=== PATIENT | female | born 1960 | race Caucasian/White ===

== ENCOUNTER → 2018-06-01 | Day surgery (SDC) | payer OTHER ==
[~2018-06-01] MED LIST: ATENOLOL50 MG PO; BUPIVACAINE HCL 0.5% INJ 30 ML VIAL INJ ONE; CEFAZOLIN SOD 1 GM VIAL ONE; DEXAMETHASONE SOD PHOS INJ 4 MG/ML VIAL ONE; EPHEDRINE SULFATE INJ 50 MG/10 ML SYR ONE; FENTANYL CITRATE/PF 100MCG/2 ML INJ ONE; GABAPENTIN PO; IRON PO; LIDOCAINE HCL 2% LOCAL INJ 5 ML SDV VIAL INJ ONE; LIDODERM700 MG TOP; MIDAZOLAM HCL 2 MG/2 ML VIAL ONE; MUPIROCIN 2% OINT 22 GM TUBE ONE; ONDANSETRON HCL INJ 2 MG/ML VIAL ONE; PROPOFOL IV EMULSION 10 MG/ML 20 ML VIAL ONE; SEVOFLURANE INHAL SOLN 250 ML PEN BTL ONE; TYLENOL WITH C1 EACH PO; ULTRAM 50MG50 MG PO; VIMOVO PO; ZOLOFT50 MG PO
--- OUTSIDE RECORDS SUMMARY | 2018-06-01 05:35 | XMS REPORT ---
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 Allergies, Adverse Reactions, Alerts Allergy Name Allergy Type Status Severity Reaction(s) Onset Date Inactive Date Treating Clinician Comments No Known Allergies DA Active U 2017-12-22 00:00:00 Medications This patient has no known medications.
[2018-06-01 08:30] VITALS: BP 132/81
--- NOTE | 2018-06-01 11:19 | Operative Report ---
DATE OF PROCEDURE: June 01, 2018 PREOPERATIVE DIAGNOSIS: Right carpal tunnel syndrome. POSTOPERATIVE DIAGNOSES 1. Right carpal tunnel syndrome. 2. Flexor tenosynovitis right wrist. PROCEDURES 1. Right open carpal tunnel release. 2. Flexor tenosynovectomy right wrist. ANESTHESIA: General. HISTORY: The patient is a 57-year-old with EMG-proven right carpal tunnel syndrome. Risks, benefits and alternatives of treatment were discussed with the patient. The patient is prepared to undergo the procedure as outlined. PROCEDURE: The patient was brought to the operating theater. After the induction of adequate general inhalation anesthesia, the patient was prepped and draped in the supine position. A time out was performed by the entire operating room team. A 2.5-cm incision was marked out in the intrathenar space. The right upper extremity was exsanguinated and a tourniquet was inflated to a pressure of 250 mmHg. The incision was made through the skin and subcutaneous tissues and all venous tributaries were controlled with bipolar cautery. The incision was deepened through the palmar fascia until the transverse carpal ligament was identified. The ligament was sharply sectioned, taking care to protect and preserve the median nerve underlying it. After the complete width of the ligament had been transected, the distal volar forearm fascia was divided under direct view. Proliferative flexor tenosynovium was noticed to encompass the median nerve and this was radically excised. After performing this maneuver, the nerve was noted to lie adequately decompressed. The wound was copiously irrigated with bacteriostatic saline, closed with 5-0 nylon in an interrupted horizontal mattress fashion. A Marcaine field block was performed at the operative site. Tourniquet was deflated. All of the fingers pinked up nicely and a sterile bulking conforming bandage was applied to the hand and the wrist. A fiberglass splint was fashioned to maintain the wrist in a modest amount of extension. This was held in place with a loosely wrapped Jermaine wrap. The patient tolerated the procedure well and was brought to the recovery room in satisfactory condition and discharged with a postoperative instruction sheet as well as a followup appointment. Job#: [id number] SOLIS
== END | disposition home or self-care (01) ==
LOC: OR 05:25
PROVIDERS: ATTEND Plastic Surgery
DX: G56.01 Carpal tunnel syndrome, right upper limb (principal); M65.841 Other synovitis and tenosynovitis, right hand; I10 Essential (primary) hypertension; M54.9 Dorsalgia, unspecified; Z01.810 Encounter for preprocedural cardiovascular examination
CPT/HCPCS: 25115; 93005; J0690; J1100; J2001; J2250; J2405

== ENCOUNTER → 2020-05-07 | Outpatient (CLI) | payer OTHER ==
[~2020-05-07] MED LIST changes: -BUPIVACAINE HCL 0.5% INJ 30 ML VIAL INJ ONE; -CEFAZOLIN SOD 1 GM VIAL ONE; -DEXAMETHASONE SOD PHOS INJ 4 MG/ML VIAL ONE; -EPHEDRINE SULFATE INJ 50 MG/10 ML SYR ONE; -FENTANYL CITRATE/PF 100MCG/2 ML INJ ONE; -LIDOCAINE HCL 2% LOCAL INJ 5 ML SDV VIAL INJ ONE; -MIDAZOLAM HCL 2 MG/2 ML VIAL ONE; -MUPIROCIN 2% OINT 22 GM TUBE ONE; -ONDANSETRON HCL INJ 2 MG/ML VIAL ONE; -PROPOFOL IV EMULSION 10 MG/ML 20 ML VIAL ONE; -SEVOFLURANE INHAL SOLN 250 ML PEN BTL ONE
--- NOTE | 2020-05-07 09:06 | Diagnostic Imaging Report ---
EXAM: US ABDOMEN COMPLETE DATE: 05/07/2020 8:06 AM INDICATION: Left upper quadrant abdominal pain COMPARISON: None TECHNIQUE: Transverse and longitudinal shepherd scale and color doppler sonographic images of the upper abdomen were obtained. FINDINGS: LIVER 15.0 cm in the right midclavicular line. Mildly increased echogenicity of the liver with normal contour, no masses. SPLEEN 9.0 cm in maximum diameter. Normal echogenicity, no masses. GALLBLADDER No gallbladder wall thickening, distension, stone, or pericholecystic fluid. Negative reported sonographic Figueroa's sign. The gallbladder wall measures 2mm BILE DUCTS No intra nor extra-hepatic biliary dilation. Common bile duct measures 2mm PANCREAS: Visualized portions are normal. RIGHT KIDNEY: 9.9 cm Echogenicity: Normal Collecting System: No hydronephrosis Stones: None Cyst/Mass: None LEFT KIDNEY: 10.5 cm Echogenicity: Normal Collecting System: No hydronephrosis Stones: None Cyst/Mass: None VESSELS: Aorta: Visualized portions are within normal size limits Inferior Vena Cava: Visualized portions are normal Main Portal Vein: 0.8 cm, normal size with hepatopetal flow. FREE FLUID: None IMPRESSION: Mild diffuse hepatic steatosis. Otherwise, unremarkable abdominal ultrasound. Signed by: Britta Duncan MD on 05/07/2020 9:03 AM
== END ==
LOC: US 07:30
PROVIDERS: ATTEND Family Medicine
DX: R10.12 Left upper quadrant pain (principal)
CPT/HCPCS: 76700

== ENCOUNTER 2022-11-10 18:19 | Inpatient (IN) | payer OTHER ==
[~2022-11-10] VITALS: Ht 160 cm; Wt 89.8 kg
[2022-11-10] MEDS ORDERED: HYDROCODONE/APAP 10MG-325MG TAB PO ONE (18:45)
[2022-11-10] MEDS ORDERED: ONDANSETRON HCL INJ 2MG/ML 2ML 2 MG/ML VIAL IV STA (20:04)
[2022-11-10] MEDS ORDERED: Morphine 4mg INJECTION 4 MG/ML INJ IV STA (20:04)
[2022-11-10] MEDS ORDERED: SODIUM CHLORIDE 0.9% 1000ML 1,000 ML IV STA (20:04)
[2022-11-10 20:27] LABS: BASOPHILS # (AUTO) 0.1 (0.0-0.1); BASOPHILS % 0.6 % (0.0-1.0); EOSINOPHILS # (AUTO) 0.1 (0.0-0.4); HEMOGLOBIN 12.1 g/dL (12.0-16.0); LYMPHOCYTES # (AUTO) 1.6 (1.0-3.2); LYMPHOCYTES % 15.5 % (18.0-39.1); MEAN CORPUSCULAR HEMOGLOBIN 34.3 pg (28-32); MEAN CORPUSCULAR HGB CONC 33.6 g/dL (31-35); MONOCYTES # (AUTO) 0.9 (0.2-0.8); MONOCYTES % 8.9 % (4.4-11.3); NEUTROPHILS # (AUTO) 7.4 (2.1-6.9); NEUTROPHILS % 73.2 % (38.7-80.0); PLATELET COUNT 248 x10e3/uL (140-360); RED BLOOD COUNT 3.53 x10e6/uL (3.6-5.1); RED CELL DISTRIBUTION WIDTH 12.2 % (11.7-14.4)
[2022-11-10 20:47] LABS: ANION GAP 17.3 mmol/L (8-16); CREATININE, SERUM 0.59 mg/dL (0.57-1.11); POTASSIUM 3.3 mmol/L (3.5-5.1)
[2022-11-10 23:27] VITALS: BP 161/80
[2022-11-10] MEDS ORDERED: HYDROCHLOROTHIA25 MG PO (23:40)
[2022-11-10] MEDS ORDERED: NEURONTIN300 MG PO (23:40)
[2022-11-10] MEDS ORDERED: NAPROXEN250 MG PO (23:41)
[2022-11-10] MEDS ORDERED: CYMBALTA30 MG (23:44)
[2022-11-10] MEDS ORDERED: B COMPLEX1 EACH (23:46)
[2022-11-11] VITALS (8 sets, daily range): BP systolic 121–161; BP diastolic 66–81
[2022-11-11] MEDS: SODIUM CHLORIDE 0.9% 1000ML 1,000 ML IV SCH ×4 (00:43→20:15)
[2022-11-11] MEDS: Morphine 4mg INJECTION 4 MG/ML INJ IV PRN ×3 (01:13→11:50)
[2022-11-11] MEDS: ONDANSETRON HCL INJ 2MG/ML 2ML 2 MG/ML VIAL IV PRN ×3 (01:14→11:49)
[2022-11-11 05:00] LABS: BASOPHILS # (AUTO) 0.1 (0.0-0.1); BASOPHILS % 1.1 % (0.0-1.0); EOSINOPHILS # (AUTO) 0.2 (0.0-0.4); EOSINOPHILS % 2.8 % (0.0-6.0); HEMATOCRIT 33.1 % (34.2-44.1); HEMOGLOBIN 11.1 g/dL (12.0-16.0); LYMPHOCYTES # (AUTO) 1.6 (1.0-3.2); LYMPHOCYTES % 24.3 % (18.0-39.1); MEAN CORPUSCULAR HEMOGLOBIN 34.3 pg (28-32); MEAN CORPUSCULAR HGB CONC 33.5 g/dL (31-35); MEAN CORPUSCULAR VOLUME 102.2 fL (81-99); MONOCYTES # (AUTO) 0.8 (0.2-0.8); MONOCYTES % 12.9 % (4.4-11.3); NEUTROPHILS # (AUTO) 3.8 (2.1-6.9); NEUTROPHILS % 58.3 % (38.7-80.0); PLATELET COUNT 232 x10e3/uL (140-360); RED BLOOD COUNT 3.24 x10e6/uL (3.6-5.1); RED CELL DISTRIBUTION WIDTH 12.2 % (11.7-14.4)
[2022-11-11 05:24] LABS: CALCIUM 8.5 mg/dL (8.4-10.2); CREATININE, SERUM 0.59 mg/dL (0.57-1.11)
[2022-11-11] MEDS: DULOXETINE HCL 30 MG DELAYED RELEASE PO SCH (09:14)
[2022-11-11] MEDS: NAPROXEN 250 MG TAB PO SCH ×2 (09:15→17:45)
[2022-11-11] MEDS: AMLODIPINE BESYLATE 5 MG TAB PO SCH (09:20)
[2022-11-11] MEDS: GABAPENTIN 300 MG CAP PO SCH ×2 (12:00→17:45)
[2022-11-11] MEDS: ATENOLOL 50 MG TAB PO SCH (18:20)
[2022-11-12] VITALS (7 sets, daily range): BP systolic 109–132; BP diastolic 65–89
[2022-11-12] MEDS: GABAPENTIN 300 MG CAP PO SCH ×4 (00:02→17:47)
[2022-11-12] MEDS: SODIUM CHLORIDE 0.9% 1000ML 1,000 ML IV SCH (05:14)
[2022-11-12] MEDS: NAPROXEN 250 MG TAB PO SCH ×2 (08:16→17:47)
[2022-11-12] MEDS: DULOXETINE HCL 30 MG DELAYED RELEASE PO SCH (08:16)
[2022-11-12] MEDS: AMLODIPINE BESYLATE 5 MG TAB PO SCH (08:17)
[2022-11-12] MEDS ORDERED: DOCUSATE SODIUM 100 MG CAP PO PRN (09:30)
[2022-11-12] MEDS: HYDROCODONE/APAP 5MG-325MG TAB PO PRN ×2 (09:59→18:07)
[2022-11-12] MEDS: ATENOLOL 50 MG TAB PO SCH (14:03)
[2022-11-13] VITALS (7 sets, daily range): BP systolic 116–139; BP diastolic 61–82
[2022-11-13] MEDS: GABAPENTIN 300 MG CAP PO SCH ×5 (00:43→23:51)
[2022-11-13] MEDS: KETOROLAC TROMETHAMINE 30 MG/ML VIAL IM PRN (05:55)
[2022-11-13 06:55] LABS: BASOPHILS # (AUTO) 0.1 (0.0-0.1); BASOPHILS % 0.9 % (0.0-1.0); EOSINOPHILS # (AUTO) 0.2 (0.0-0.4); EOSINOPHILS % 2.8 % (0.0-6.0); HEMATOCRIT 33.9 % (34.2-44.1); HEMOGLOBIN 10.7 g/dL (12.0-16.0); LYMPHOCYTES # (AUTO) 1.2 (1.0-3.2); LYMPHOCYTES % 21.7 % (18.0-39.1); MEAN CORPUSCULAR HEMOGLOBIN 33.9 pg (28-32); MEAN CORPUSCULAR HGB CONC 31.6 g/dL (31-35); MEAN CORPUSCULAR VOLUME 107.3 fL (81-99); MONOCYTES # (AUTO) 0.8 (0.2-0.8); NEUTROPHILS # (AUTO) 3.4 (2.1-6.9); NEUTROPHILS % 59.9 % (38.7-80.0); PLATELET COUNT 221 x10e3/uL (140-360); RED BLOOD COUNT 3.16 x10e6/uL (3.6-5.1); RED CELL DISTRIBUTION WIDTH 12.6 % (11.7-14.4)
[2022-11-13 06:56] LABS: ALBUMIN 2.9 g/dL (3.5-5.0); ALBUMIN/GLOBULIN RATIO 1.1 (0.8-2.0); ANION GAP 11.8 mmol/L (8-16); CALCIUM 8.6 mg/dL (8.4-10.2); CREATININE, SERUM 0.51 mg/dL (0.57-1.11); MAGNESIUM 2.1 MG/DL (1.3-2.1); POTASSIUM 3.8 mmol/L (3.5-5.1)
[2022-11-13] MEDS: DULOXETINE HCL 30 MG DELAYED RELEASE PO SCH (09:03)
[2022-11-13] MEDS: NAPROXEN 250 MG TAB PO SCH ×2 (09:04→16:55)
[2022-11-13] MEDS: AMLODIPINE BESYLATE 5 MG TAB PO SCH (09:04)
[2022-11-13] MEDS: ATENOLOL 50 MG TAB PO SCH (09:05)
[2022-11-13] MEDS: DOCUSATE SODIUM 100 MG CAP PO PRN ×2 (11:06→16:55)
[2022-11-13] MEDS: SENNOSIDES 8.6 MG TAB PO PRN (16:55)
[2022-11-13] MEDS: HYDROCODONE/APAP 5MG-325MG TAB PO PRN (21:08)
[2022-11-14] VITALS (7 sets, daily range): BP systolic 119–146; BP diastolic 72–80
[2022-11-14] MEDS: GABAPENTIN 300 MG CAP PO SCH ×4 (05:48→23:22)
[2022-11-14] MEDS: AMLODIPINE BESYLATE 5 MG TAB PO SCH (08:26)
[2022-11-14] MEDS: SENNOSIDES 8.6 MG TAB PO PRN (08:26)
[2022-11-14] MEDS: DULOXETINE HCL 30 MG DELAYED RELEASE PO SCH (08:27)
[2022-11-14] MEDS: ATENOLOL 50 MG TAB PO SCH (08:27)
[2022-11-14] MEDS: NAPROXEN 250 MG TAB PO SCH ×2 (08:27→17:32)
[2022-11-14] MEDS: DOCUSATE SODIUM 100 MG CAP PO PRN (08:27)
[2022-11-14] MEDS: KETOROLAC TROMETHAMINE 30 MG/ML VIAL IM PRN ×2 (08:34→17:35)
[2022-11-15] VITALS (7 sets, daily range): BP systolic 116–145; BP diastolic 59–83
[2022-11-15] MEDS: GABAPENTIN 300 MG CAP PO SCH ×4 (05:01→22:16)
[2022-11-15] MEDS: HYDROCODONE/APAP 5MG-325MG TAB PO PRN ×2 (05:06→18:00)
[2022-11-15] MEDS: AMLODIPINE BESYLATE 5 MG TAB PO SCH (09:54)
[2022-11-15] MEDS: DULOXETINE HCL 30 MG DELAYED RELEASE PO SCH (09:54)
[2022-11-15] MEDS: ATENOLOL 50 MG TAB PO SCH (09:55)
[2022-11-15] MEDS ORDERED: ONDANSETRON HCL 4 MG ORAL DISINTEGRATING TAB PO PRN (11:00)
[2022-11-15] MEDS: NAPROXEN 250 MG TAB PO SCH ×2 (13:04→18:57)
[2022-11-16] MEDS: GABAPENTIN 300 MG CAP PO SCH ×3 (05:34→17:37)
[2022-11-16 07:55] VITALS: BP 119/73
[2022-11-16] MEDS: ATENOLOL 50 MG TAB PO SCH (08:55)
[2022-11-16] MEDS: NAPROXEN 250 MG TAB PO SCH ×2 (08:56→17:37)
[2022-11-16] MEDS: AMLODIPINE BESYLATE 5 MG TAB PO SCH (08:56)
[2022-11-16] MEDS: DULOXETINE HCL 30 MG DELAYED RELEASE PO SCH (08:56)
[2022-11-16] MEDS: HYDROCODONE/APAP 5MG-325MG TAB PO PRN ×2 (09:00→17:40)
[2022-11-16] MEDS: SENNOSIDES 8.6 MG TAB PO PRN (09:55)
[2022-11-16] MEDS: DOCUSATE SODIUM 100 MG CAP PO PRN (09:55)
[2022-11-16] MEDS: LIDOCAINE 4% PATCH TP SCH (10:59)
[2022-11-16 11:50] VITALS: BP 119/76
[2022-11-16 15:58] VITALS: BP 131/69
[2022-11-16 15:59] VITALS: BP 131/69
[2022-11-16 20:00] VITALS: BP 127/75
[2022-11-16 21:00] VITALS: BP 127/75
[2022-11-17] VITALS (8 sets, daily range): BP systolic 106–187; BP diastolic 66–84
[2022-11-17] MEDS: GABAPENTIN 300 MG CAP PO SCH ×4 (01:01→18:01)
[2022-11-17] MEDS: HYDROCODONE/APAP 5MG-325MG TAB PO PRN ×2 (05:58→18:01)
[2022-11-17] MEDS: DULOXETINE HCL 30 MG DELAYED RELEASE PO SCH (08:23)
[2022-11-17] MEDS: NAPROXEN 250 MG TAB PO SCH ×2 (08:24→18:01)
[2022-11-17] MEDS: AMLODIPINE BESYLATE 5 MG TAB PO SCH (08:24)
[2022-11-17] MEDS: LIDOCAINE 4% PATCH TP SCH (08:24)
[2022-11-17] MEDS: ATENOLOL 50 MG TAB PO SCH (08:24)
== END 2022-11-17 21:39 | DRG 543 ==
LOC: ER 18:25 → ERHOLD 20:11 → MED/SURG 22:56 → OBSVTOIN 11-12 15:40
PROVIDERS: ADMIT Family Medicine; ATTEND Family Medicine
DX: M80.052A Age-related osteoporosis with current pathological fracture, left femur, initial encounter for fracture (principal); E87.1 Hypo-osmolality and hyponatremia; G89.29 Other chronic pain; M54.50 Low back pain, unspecified; I10 Essential (primary) hypertension; G62.9 Polyneuropathy, unspecified; Z20.822 Contact with and (suspected) exposure to COVID-19
CPT/HCPCS: 36415; 72131; 72192; 72195; 80048; 80053; 83735; 85025; 94799; 99284; G0378; J1885; J2270; J2405; J7030